=== PATIENT | female | born 1970 | race Caucasian/White ===

== ENCOUNTER 2019-09-07 10:12 | Outpatient (CLI) | payer OTHER ==
[2019-09-07] MEDS ORDERED: NONE PER PT (10:36)
[2019-09-07] MEDS ORDERED: MULT-516 PO (10:53)
[2019-09-07] MEDS ORDERED: LORA10TA37 PO (10:53)
[2019-09-07 11:00] LABS: BASOPHILS # (AUTO) 0.05 x10^3/uL (0-0.1); BASOPHILS % (AUTO) 1 % (0-1); EOSINOPHILS # (AUTO) 0.08 x10^3/uL (0-0.4); EOSINOPHILS % (AUTO) 1 % (1-7); LYMPHOCYTES # (AUTO) 1.42 x10^3/uL (1-3.4); LYMPHOCYTES % (AUTO) 18 % (22-44); MD NO; MEAN CORPUSCULAR HEMOGLOBIN 30.1 pg (27.0-34.8); MEAN CORPUSCULAR HGB CONC 33.1 g/dL (32.4-35.8); MEAN PLATELET VOLUME 7.9 fL (7.4-10.4); MONOCYTES # (AUTO) 0.42 x10^3/uL (0.2-0.8); MONOCYTES % (AUTO) 5 % (2-9); NEUTROPHILS # (AUTO) 5.97 x10^3/uL (1.8-6.8); NEUTROPHILS % (AUTO) 75 % (42-75); PLATELET COUNT 371 x10^3/uL (130-400); RED BLOOD COUNT 4.78 x10^6/uL (3.82-5.3); RED CELL DISTRIBUTION WIDTH 14.1 % (9.6-15.2)
[2019-09-07 11:03] LABS: MICROSCOPIC NOT IND
[2019-09-07 11:14] LABS: ALBUMIN 3.9 g/dL (3.4-5.0); ANION GAP 7 mmol/L (5-15); CALCIUM 9.3 mg/dL (8.5-10.1); CHLORIDE 109 mmol/L (98-107)
[2019-09-07 11:19] LABS: ALANINE AMINOTRANSFERASE 26 U/L (12-78); ALKALINE PHOSPHATASE 78 U/L (45-117); BILIRUBIN,TOTAL 0.4 mg/dL (0.2-1.0); CREATININE 0.89 mg/dL (0.55-1.02); TOTAL PROTEIN 7.6 g/dL (6.4-8.2)
== END 2019-09-07 23:59 | disposition home or self-care (01) ==
LOC: STAR 10:12
PROVIDERS: ATTEND Obstetrics & Gynecology
DX: Z01.818 Encounter for other preprocedural examination (principal); N92.0 Excessive and frequent menstruation with regular cycle; D25.9 Leiomyoma of uterus, unspecified; J98.4 Other disorders of lung; R94.31 Abnormal electrocardiogram [ECG] [EKG]
CPT/HCPCS: 36415; 71046; 80053; 81003; 84702; 85025; 93005

== ENCOUNTER 2019-09-15 12:03 | Inpatient (IN) | payer OTHER ==
[~2019-09-15] VITALS: Ht 160 cm; Wt 81.5 kg
[~2019-09-15 12:03] MED LIST: LORA10TA37 PO; MULT-516 PO; NONE PER PT
[2019-09-15 12:40] VITALS: BP 115/81
[2019-09-15 12:46] LABS: HCG UR SG 1.015 (1.003-1.030)
[2019-09-15] MEDS ORDERED: CHLORHEXIDINE 15 ML UDC MM ONE (13:00)
[2019-09-15] MEDS: LACTATED RINGERS 1,000 ML IV SCH ×2 (13:14→18:00)
[2019-09-15] MEDS ORDERED: ACETAMINOPHEN 500 MG TABLET ONE (14:20)
[2019-09-15] MEDS ORDERED: SCOPOLAMINE 1MG PATCH TD ONE (14:20)
[2019-09-15] MEDS ORDERED: FENTANYL PF 250 MCG/5ML ONE ×2 (14:23→15:34)
[2019-09-15] MEDS ORDERED: BUPIVACAINE/PF 0.25% ONE (14:24)
[2019-09-15] MEDS ORDERED: EPINEPHRINE 1 MG/ML, 1ML ONE (14:24)
[2019-09-15] MEDS ORDERED: PROPOFOL 10 MG/ML, 20ML ONE ×2 (14:26→15:34)
[2019-09-15] MEDS ORDERED: LIDOCAINE-MPF 2% ,5ML ONE (14:27)
[2019-09-15] MEDS ORDERED: SUCCINYLCHOLINE 20 MG/ML, 10ML ONE ×2 (14:27→15:34)
[2019-09-15] MEDS ORDERED: SCOPOLAMINE 1MG PATCH TD SCH (14:30)
[2019-09-15] MEDS ORDERED: ACETAMINOPHEN 500 MG TABLET PO ONE (14:30)
[2019-09-15] MEDS ORDERED: SUGAMMADEX 200 MG/2 ML IVPush ONE (14:36)
[2019-09-15] MEDS ORDERED: ROCURONIUM 10MG/ML,5ML ONE (15:34)
[2019-09-15] MEDS ORDERED: GLYCOPYRROLATE 0.2MG/1ML, 5ML ONE (15:34)
[2019-09-15] MEDS ORDERED: CEFAZOLIN 1,000 MG ONE (15:34)
[2019-09-15] MEDS ORDERED: NEOSTIGMINE 1 MG/ML, 10ML ONE (15:34)
[2019-09-15] MEDS ORDERED: ONDANSETRON 2MG/ML, 2ML ONE (15:34)
[2019-09-15] MEDS ORDERED: DEXAMETHASONE 4 MG/ML, 1ML ONE (15:34)
[2019-09-15] MEDS ORDERED: HYDROmorphone 1 MG/ML, 1ML INJ IVPush PRN (16:30)
[2019-09-15] MEDS ORDERED: LORazepam 2 MG/ML, 1ML IVPush PRN (16:30)
[2019-09-15] MEDS ORDERED: PROMETHAZINE 25 MG SUPP PR PRN (16:30)
[2019-09-15] MEDS ORDERED: ACETAMINOPHEN 325 MG TABLET PO PRN (16:30)
[2019-09-15] MEDS ORDERED: ONDANSETRON 2MG/ML, 2ML IVPush PRN ×2 (16:30→17:30)
[2019-09-15] MEDS ORDERED: FENTANYL PF 100 MCG/2ML IV PRN (16:30)
[2019-09-15] MEDS ORDERED: PROMETHAZINE 25 MG/ML, 1ML IVPush PRN (16:30)
[2019-09-15] MEDS ORDERED: DIAZEPAM 5 MG/ML, 2ML IVPush PRN (16:30)
[2019-09-15] MEDS ORDERED: OXYcodone 5 MG/5 ML ORAL.SOL UDC PO PRN (16:30)
[2019-09-15] MEDS ORDERED: FLUORESCEIN SODIUM 500 MG/5 ML ONE (16:49)
[2019-09-15] MEDS ORDERED: KETOROLAC 30 MG/1 ML IVPush PRN (17:30)
[2019-09-15] MEDS ORDERED: OXYcodone/APAP 5/325MG TABLET PO PRN (17:30)
[2019-09-15] MEDS ORDERED: HYDROmorphone 1 MG/ML, 1ML INJ ONE (17:41)
[2019-09-15 19:55] VITALS: BP 106/73
[2019-09-15] MEDS: SIMETHICONE 80 MG CHEW TAB PO SCH (20:31)
[2019-09-15 23:48] VITALS: BP 98/61
[2019-09-16 02:00] VITALS: BP 106/68
[2019-09-16] MEDS: LACTATED RINGERS 1,000 ML IV SCH ×3 (02:00→08:05)
[2019-09-16 06:34] VITALS: BP 101/66
[2019-09-16] MEDS: SIMETHICONE 80 MG CHEW TAB PO SCH (08:05)
[2019-09-16] MEDS ORDERED: OXYC-302 PO (09:17)
[2019-09-16] MEDS ORDERED: ESTR2TAB PO (09:18)
[2019-09-16] MEDS ORDERED: IBUP200T49 PO (09:18)
== END 2019-09-16 11:30 | disposition home or self-care (01) | DRG 743 ==
LOC: OUT 12:03 → EDSTATUS 14:00 → ORIP 17:11 → 4NE 18:35 → DCLOUNGE 09-16 11:21
PROVIDERS: ADMIT Obstetrics & Gynecology; ATTEND Obstetrics & Gynecology
PROC: 0UT7FZZ Resection of Bilateral Fallopian Tubes, Via Natural or Artificial Opening With Percutaneous Endoscopic Assistance (ICD-10-PCS; 2019-09-15)
PROC: 0TJB8ZZ Inspection of Bladder, Via Natural or Artificial Opening Endoscopic (ICD-10-PCS; 2019-09-15)
PROC: 0UT9FZZ Resection of Uterus, Via Natural or Artificial Opening With Percutaneous Endoscopic Assistance (ICD-10-PCS; principal; 2019-09-15 14:00)
PROC: 0UT2FZZ Resection of Bilateral Ovaries, Via Natural or Artificial Opening With Percutaneous Endoscopic Assistance (ICD-10-PCS; 2019-09-15 14:00)
DX: N92.0 Excessive and frequent menstruation with regular cycle (principal); N93.8 Other specified abnormal uterine and vaginal bleeding; Z98.51 Tubal ligation status; Z98.891 History of uterine scar from previous surgery; Z20.828 Contact with and (suspected) exposure to other viral communicable diseases
CPT/HCPCS: 36415; J3490; 81025; 85014; 85018; 86850; 86900; 87635; 88307; G0378; J0171; J0690; J1100; J1170; J1885; J2270; J2405; J2704; J2710; J3010; J0330; J7120